=== PATIENT | male | born 1975 | race Caucasian/White ===

== ENCOUNTER 2019-02-28 06:39 | Day surgery (SDC) | payer BC ==
[~2019-02-28] VITALS: Ht 182.9 cm; Wt 92.2 kg
[2019-02-28 06:56] VITALS: BP 118/78
[2019-02-28] MEDS ORDERED: LACTATED RINGERS 1,000 ML IV SCH (06:58)
[2019-02-28] MEDS ORDERED: OMEP-110 PO (07:17)
[2019-02-28] MEDS ORDERED: CHOLESTEROL (07:22)
[2019-02-28] MEDS ORDERED: METO25TA35 PO (07:22)
[2019-02-28] MEDS ORDERED: morphine SULFATE/PF 1 MG/ML, 10ML ONE (08:24)
[2019-02-28] MEDS ORDERED: LIDOCAINE 1%-EPI 1:100K, 20ML ONE (08:24)
[2019-02-28] MEDS ORDERED: PROMETHAZINE 25 MG/ML, 1ML IM PRN ×2 (09:00)
[2019-02-28] MEDS ORDERED: PROMETHAZINE 25 MG/ML, 1ML IV PRN (09:00)
[2019-02-28] MEDS ORDERED: PROMETHAZINE 25 MG SUPP PR PRN (09:00)
[2019-02-28] MEDS ORDERED: MORPHINE SULFATE 4 MG/ML, 1ML IVPush PRN (09:00)
[2019-02-28] MEDS ORDERED: PROMETHAZINE 12.5 MG SUPP PR PRN (09:00)
[2019-02-28] MEDS ORDERED: LABETALOL 5MG/ML, 20ML IV PRN (09:00)
[2019-02-28] MEDS ORDERED: OXYcodone 5 MG/5 ML ORAL.SOL UDC PO PRN (09:00)
[2019-02-28] MEDS ORDERED: hydrALAzine 20 MG/ML, 1ML IV PRN (09:00)
[2019-02-28] MEDS ORDERED: ACETAMINOPHEN 325 MG TABLET PO PRN (09:00)
[2019-02-28] MEDS ORDERED: ONDANSETRON ODT 8 MG PO PRN (09:00)
[2019-02-28] MEDS ORDERED: ONDANSETRON 2MG/ML, 2ML IV PRN (09:00)
[2019-02-28] MEDS ORDERED: MIDAZOLAM 1 MG/ML, 5ML ONE (09:08)
[2019-02-28] MEDS ORDERED: PROPOFOL 10 MG/ML, 100ML IV ONE (09:08)
[2019-02-28] MEDS ORDERED: CEFAZOLIN 1,000 MG ONE (09:08)
[2019-02-28] MEDS ORDERED: FENTANYL PF 100 MCG/2ML ONE ×3 (09:08→11:10)
[2019-02-28] MEDS ORDERED: OXYcodone 5 MG/5 ML ORAL.SOL UDC ONE (10:07)
[2019-02-28] MEDS ORDERED: HYDROmorphone 2 MG/ML, 1ML ONE ×2 (10:07→11:05)
[2019-02-28] MEDS: HYDROmorphone 2 MG/ML, 1ML IVPush PRN ×4 (10:12→10:59)
[2019-02-28] MEDS: FENTANYL PF 100 MCG/2ML IV PRN ×4 (10:20→11:25)
[2019-02-28] MEDS ORDERED: MEPERIDINE/PF 25MG/ML,1ML ONE ×2 (10:26→11:28)
[2019-02-28] MEDS: MEPERIDINE/PF 25MG/0.5ML IVPush PRN ×3 (10:30→11:33)
[2019-02-28] MEDS ORDERED: KETOROLAC 30 MG/1 ML IVPush PRN (11:00)
[2019-02-28] MEDS ORDERED: KETOROLAC 30 MG/1 ML ONE ×2 (11:03→11:04)
[2019-02-28] MEDS ORDERED: morphine SULFATE 10 MG/ML, 1ML ONE (11:05)
[2019-02-28] MEDS ORDERED: ACETAMINOPHEN 325 MG TABLET ONE (11:09)
== END 2019-02-28 14:10 | disposition home or self-care (01) ==
LOC: OUT 06:39
PROVIDERS: ATTEND Orthopaedic Surgery
DX: S83.241A Other tear of medial meniscus, current injury, right knee, initial encounter (principal); M22.41 Chondromalacia patellae, right knee; M25.461 Effusion, right knee; I10 Essential (primary) hypertension; E78.5 Hyperlipidemia, unspecified; K21.9 Gastro-esophageal reflux disease without esophagitis; M19.90 Unspecified osteoarthritis, unspecified site; Z72.89 Other problems related to lifestyle; Z79.899 Other long term (current) drug therapy; X58.XXXA Exposure to other specified factors, initial encounter; Y93.52 Activity, horseback riding; Y92.89 Other specified places as the place of occurrence of the external cause; Y99.8 Other external cause status
CPT/HCPCS: 29881; J0690; J1170; J1885; J2175; J2250; J2274; J2405; J2704; J3010; J3490; J7120